=== PATIENT | male | born 1935 | race Caucasian/White ===

== ENCOUNTER 2016-11-19 16:28 | Emergency (ER) | payer MEDICARE, OTHER ==
[2016-11-19] MEDS ORDERED: NORMAL SALINE 1000 ML 1,000 ML IV PRN (16:52)
--- NOTE | 2016-11-19 16:52 | ER Document Report ---
ED General - General Stated Complaint: WEAKNESS Time seen by provider: 16:51 Mode of Arrival: Ambulatory Information source: Patient Notes: This is an 81-year-old man with a history of esophageal cancer, diabetes, GERD and hypothyroidism. The patient presents to the emergency room with nausea, vomiting, weakness and dizziness. Patient states his symptoms started earlier today. Patient has been under a lot of stress. He receives chemotherapy weekly (followed by Dr. Steward) and the patient's was just diagnosed with terminal cancer. He is very tearful in the emergency room. TRAVEL OUTSIDE OF THE [place] IN LAST 30 DAYS: No - HPI Onset: Just prior to arrival Onset/Duration: Sudden Quality of pain: No pain Severity: None Pain Level: Denies Associated symptoms: Nausea, Vomiting. denies: Chills, Fever Exacerbated by: Denies Relieved by: Denies Similar symptoms previously: No Recently seen / treated by doctor: No - Related Data Allergies/Adverse Reactions: No Known Allergies Allergy (Verified 02/21/16 12:18) Past Medical History - General Information source: Patient - Social History Smoking Status: Never Smoker Cigarette use (# per day): No Chew tobacco use (# tins/day): No Frequency of alcohol use: None Drug Abuse: None Lives with: Family Family History: Reviewed & Not Pertinent Patient has suicidal ideation: No Patient has homicidal ideation: No - Past Medical History Cardiac Medical History: Denies: Hx Coronary Artery Disease, Hx Heart Attack, Hx Hypertension Pulmonary Medical History: Reports: Hx Bronchitis Denies: Hx Asthma, Hx COPD, Hx Pneumonia Neurological Medical History: Denies: Hx Cerebrovascular Accident, Hx Seizures Endocrine Medical History: Reports: Hx Diabetes Mellitus Type 2 Musculoskeltal Medical History: Denies Hx Arthritis Past Surgical History: Reports: Hx Cholecystectomy - Immunizations Hx Diphtheria, Pertussis, Tetanus Vaccination: Yes Review of Systems - Review of Systems Constitutional: denies: Chills, Fever EENT: No symptoms reported Cardiovascular: No symptoms reported Respiratory: No symptoms reported Gastrointestinal: See HPI Genitourinary: No symptoms reported Male Genitourinary: No symptoms reported Musculoskeletal: No symptoms reported Skin: No symptoms reported Hematologic/Lymphatic: No symptoms reported Neurological/Psychological: See HPI Physical Exam - Vital signs Vitals: Temp Pulse Resp BP Pulse Ox 97.8 F 76 20 133/68 H 98 11/19/16 16:34 11/19/16 16:34 11/19/16 16:34 11/19/16 16:34 11/19/16 16:34 Notes: Physical exam: GENERAL: 81-year-old man, alert and oriented 3, appears weak and dehydrated HEAD: Atraumatic, normocephalic. EYES: Pupils equal round and reactive to light, extraocular movements intact, sclera anicteric, conjunctiva are normal. ENT: TMs normal, nares patent, oropharynx clear without exudates. Dry mucous membranes. NECK: Normal range of motion, supple without lymphadenopathy or JVD. LUNGS: Breath sounds clear to auscultation bilaterally and equal. No wheezes rales or rhonchi. HEART: Regular rate and rhythm without murmurs, rubs or gallops. ABDOMEN: Soft, nontender, normoactive bowel sounds. No guarding, no rebound. No masses appreciated. EXTREMITIES: Normal range of motion, no pitting or edema. No clubbing or cyanosis. NEUROLOGICAL: Cranial nerves II through XII grossly intact. Normal speech, normal gait. PSYCH: Tearful SKIN: Warm, Dry, normal turgor, no rashes or lesions noted. Course - Vital Signs Vital signs: Temp Pulse Resp BP Pulse Ox 97.8 F 76 20 133/68 H 98 11/19/16 16:34 11/19/16 16:34 11/19/16 16:34 11/19/16 16:34 11/19/16 16:34 - Laboratory Result Diagrams: 11/19/16 16:50 11/19/16 16:50 Laboratory results interpreted by me: 11/19/16 11/19/16 11/19/16 16:50 16:50 18:30 WBC 2.6 L RBC 3.21 L Hgb 11.4 L Hct 32.1 L MCV 100 H MCH 35.5 H RDW 17.3 H Plt Count 99 L Seg Neutrophils % 78.3 H Lymphocytes % 11.2 L Absolute Lymphocytes 0.3 L Glucose 194 H Total Protein 6.2 L Urine Glucose (UA) >=500 H Urine Ketones TRACE H - EKG Interpretation by Me Rate: Normal Rhythm: NSR - EKG shows normal sinus rhythm with a ventricular rate of 82, no acute ST-T wave changes. Discharge - Discharge Clinical Impression: dizziness, nausea, dehydration Condition: Stable Disposition: HOME, SELF-CARE Instructions: Dizziness ([facility]) Additional Instructions: Recommendations: Take the Zofran for nausea. Follow-up with Dr. Steward in the morning as planned. To the emergency room for any worsening symptoms of dizziness, nausea, feeling faint or like you going to pass out. Continue current medicines.
[2016-11-19 17:08] LABS: ABSOLUTE LYMPHOCYTES (AUTO) 0.3 10^3/uL (0.5-4.7); ABSOLUTE MONOCYTES (AUTO) 0.3 10^3/uL (0.1-1.4); ABSOLUTE NEUT (AUTO) 2.1 10^3/uL (1.7-8.2); BASOPHILS % (AUTO) 0.5 % (0-2); EOSINOPHILS % (AUTO) 0.5 % (0-6); HEMATOCRIT 32.1 % (37.9-51.0); HEMOGLOBIN 11.4 g/dL (13.5-17.0); HGB HCT DIFFERENCE 2.1; LYMPHOCYTES % (AUTO) 11.2 % (13-45); MEAN CORPUSCULAR HEMOGLOBIN 35.5 pg (27.0-33.4); MEAN CORPUSCULAR HGB CONC 35.4 g/dL (32.0-36.0); MEAN CORPUSCULAR VOLUME 100 fl (80-97); MONOCYTES % (AUTO) 9.5 % (3-13); RED BLOOD COUNT 3.21 10^6/uL (4.35-5.55); RED CELL DISTRIBUTION WIDTH 17.3 % (11.5-14.0); SEGMENTED NEUTROPHILS % (AUTO) 78.3 % (42-78); WHITE BLOOD COUNT 2.6 10^3/uL (4.0-10.5)
[2016-11-19 17:16] LABS: VENOUS BLOOD BASE EXCESS 1.9 mmol/L; VENOUS BLOOD HCO3 27.9 mmol/L (20-32); VENOUS BLOOD PCO2 49.9 mmHg (35-63); VENOUS BLOOD PH 7.37 (7.30-7.42)
[2016-11-19 17:19] LABS: ALANINE AMINOTRANSFERASE 32 U/L (21-72); ALBUMIN 3.7 g/dL (3.5-5.0); ALKALINE PHOSPHATASE 66 U/L (38-126); ANION GAP 8 (5-19); ASPARTATE AMINO TRANSFERASE 19 U/L (17-59); BILIRUBIN,TOTAL 0.5 mg/dL (0.2-1.3); BLOOD UREA NITROGEN 11 mg/dL (7-20); CALCIUM 8.4 mg/dL (8.4-10.2); CARBON DIOXIDE 27 mmol/L (22-30); CHLORIDE 103 mmol/L (98-107); CREATINE KINASE 94 U/L (55-170); CREATININE RESULT 0.69 mg/dL (0.52-1.25); GLUCOSE 194 mg/dL (75-110); LIPASE 162.4 U/L (23-300); POTASSIUM 4.2 mmol/L (3.6-5.0); SODIUM 138.4 mmol/L (137-145); TOTAL PROTEIN 6.2 g/dL (6.3-8.2)
[2016-11-19 17:27] LABS: CREATINE KINASE MB 1.58 ng/mL (<4.55)
[2016-11-19 17:32] LABS: TROPONIN I < 0.012 ng/mL
[2016-11-19 17:39] LABS: ANISOCYTOSIS 1+; OVALOCYTES 2+; POIKILOCYTOSIS 1+; POLYCHROMASIA SLIGHT; SCHISTOCYTES SLIGHT; TEAR DROP CELLS SLIGHT
[2016-11-19 19:32] LABS: APPEARANCE,URINE CLEAR; BILIRUBIN,URINE NEGATIVE (NEGATIVE); GLUCOSE, URINE >=500 mg/dL (NEGATIVE); KETONES,URINE TRACE mg/dL (NEGATIVE); LEUKOCYTE ESTERASE,URINE NEGATIVE (NEGATIVE); NITRITE,URINE NEGATIVE (NEGATIVE); PROTEIN,URINE NEGATIVE (NEGATIVE); UROBILINOGEN,URINE NEGATIVE mg/dL (<2.0)
[2016-11-19] MEDS ORDERED: ONDANSETRON ODT 4 MG TAB (6 TAB/DSPK) PO PRN (19:41)
--- NOTE | 2016-11-19 23:07 | EKG REPORT ---
SEVERITY:- BORDERLINE ECG - SINUS RHYTHM BORDERLINE LEFT AXIS DEVIATION BORDERLINE T ABNORMALITIES, DIFFUSE LEADS : Confirmed by: Indy Sanchez 19-Nov-2016 23:06:57
[2016-11-19 23:10] VITALS: BP 126/86
== END 2016-11-19 20:17 | disposition home or self-care (01) ==
LOC: ER 16:28
DX: R42 Dizziness and giddiness (principal); R11.0 Nausea; E86.0 Dehydration; R53.1 Weakness; E11.9 Type 2 diabetes mellitus without complications; C15.9 Malignant neoplasm of esophagus, unspecified; E03.9 Hypothyroidism, unspecified; Z90.49 Acquired absence of other specified parts of digestive tract
CPT/HCPCS: 93005; 99285; 96360; 36415; 82553; 82550; 83690; 85025; 80053; 81001; 84484; 82803; 93010; J7030; A9270

== ENCOUNTER → 2016-12-29 | Outpatient (CLI) | payer MEDICARE, OTHER | LOC: RAD 12:36 | PROVIDERS: ATTEND Specialist | DX: C15.5 Malignant neoplasm of lower third of esophagus (principal) | CPT/HCPCS: 71260; 74160 ==

== ENCOUNTER → 2017-03-24 | Outpatient (CLI) | payer MEDICARE, OTHER | LOC: RAD 08:41 | PROVIDERS: ATTEND Internal Medicine | DX: C15.5 Malignant neoplasm of lower third of esophagus (principal) | CPT/HCPCS: 71260; 74160 ==

== ENCOUNTER → 2017-06-18 | Outpatient (CLI) | payer MEDICARE, OTHER ==
--- NOTE | 2017-06-18 10:45 | RADIOLOGY REPORT (SQ) ---
EXAM DESCRIPTION: CT CHEST WITH; CT ABD/PELVIS WITH IV ORAL COMPLETED DATE/TIME: 06/18/2017 9:18 am REASON FOR STUDY: ESOPHAGEAL CA (C15.5) C15.5 MALIGNANT NEOPLASM OF LOWER THIRD OF ESOPHAGUS COMPARISON: Radiation therapy treatment planning chest CT 07/17/2015 PET-CT 04/25/2016, 08/15/2016 CT chest abdomen pelvis 12/29/2016, 03/24/2017 CONTRAST TYPE AND DOSE: contrast/concentration: Isovue 370.00 mg/ml; Total Contrast Delivered: 79.0 ml; Total Saline Delivered: 68.0 ml RENAL FUNCTION: Creatinine 0.6 TECHNIQUE: CT scan of the chest performed using helical scanning technique with dynamic intravenous contrast injection. Images reviewed with lung, soft tissue and bone windows. Reconstructed coronal a nd sagittal MPR images reviewed. All images stored on PACS. CT scan of the abdomen and pelvis performed with intravenous and with oral contrastusing helical scan philip technique with dynamic intravenous contrast injection. Images reviewed with lung, soft tissue a nd bone windows. Reconstructed coronal and sagittal MPR images reviewed. Delayed images for evaluat ion of the urinary system also acquired and evaluated. All images stored on PACS. All CT scanners at this facility use dose modulation, iterative reconstruction, and/or weight based d osing when appropriate to reduce radiation dose to as low as reasonably achievable (ALARA). [facility]: Dose Right [facility]: CareDose [facility]: Dose Right [facility]: Teradose 4D [facility]: [employer] RADIATION DOSE: Up-to-date CT equipment and radiation dose reduction techniques were employed. CTDIv ol: 7.6 - 10.7 mGy. DLP: 1143 mGy-cm. . LIMITATIONS: None. FINDINGS: CHEST: LUNGS AND PLEURA: No worrisome opacities, nodules, masses. No pneumothorax. No effusions. There is minimal scarring in the periphery of the right lower lobe laterally on image 34, unchanged from 2015. HILAR AND MEDIASTINAL STRUCTURES: No mediastinal adenopathy. There is post radiation change along th e inferior right hilum above went minimal lung parenchymal volume loss and bronchiectasis. There is diffuse esophageal circumferential wall thickening, from the ovi to GE junction, similar compared to previous exams. HEART AND VASCULAR STRUCTURES: No aneurysm or dissection. No central pulmonary emboli. No pericardi al effusion. Minimal coronary artery calcification HARDWARE: None. THYROID AND OTHER SOFT TISSUES: No masses. No adenopathy. 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 There is a stable inferior e ndplate fracture with vacuum phenomenon and minimal overall loss of height with diffuse bony sclerosi s at T8. This finding is similar compared to previous studies. OTHER: No other significant finding. ABDOMEN AND PELVIS: Just ventral to the GE junction below the hemidiaphragms, a 1.2 x 1 cm lymph node is present which is smaller than on previous exams (was 1.4 x 1.2 cm on 03/24/2017). LIVER: Normal size. No masses. No dilated ducts. SPLEEN: Normal size. No focal lesions. PANCREAS: No masses. No significant calcifications. No adjacent inflammation or peripancreatic fluid collections. Pancreatic duct not dilated. GALLBLADDER: Surgically absent ADRENAL GLANDS: No significant masses or asymmetry. RIGHT KIDNEY AND URETER: No solid masses. No significant calcification. No hydronephrosis or hydroure ter. LEFT KIDNEY AND URETER: No solid masses. 1 cm cyst left posterior mid pole kidney. No significant c alcification. No hydronephrosis or hydroureter. AORTA AND VESSELS: No abdominal aortic aneurysm. Very heavily calcified proximal left renal artery w orrisome for flow significant renal artery stenosis, best shown on coronal reconstruction images 36 a nd 37, and axial CT abdomen pelvis images 62-65. Other visceral arteries off the aorta are grossly u nremarkable. RETROPERITONEUM: Lymph node as above BOWEL AND PERITONEAL CAVITY: No masses or inflammatory changes. No free fluid or peritoneal masses. APPENDIX: Normal. No right lower quadrant inflammatory change ABDOMINAL WALL: Bilateral fat containing inguinal hernias are present. Old postsurgical changes from reversal of a feeding jejunostomy in the left upper quadrant. BONES: No significant or acute findings. PELVIS: No adenopathy or free fluid. No other significant finding. IMPRESSION: Lower third diffuse esophageal wall thickening, similar compared to previous studies Decrease in size of the lymph node immediately ventral to the GE junction as compared to 03/24/2017 Stable inferior endplate T8 compression deformity No CT evidence of metastatic disease to the abdomen or pelvis NORMAL CT OF THE ABDOMEN AND PELVIS WITH ORAL AND INTRAVENOUS CONTRAST. TECHNICAL DOCUMENTATION: JOB ID: [id number] Quality ID # [id number]: Final reports with documentation of one or more dose reduction techniques (e.g., Au tomated exposure control, adjustment of the mA and/or kV according to patient size, use of iterative reconstruction technique) 2010 [employer]- All Rights Reserved
== END ==
LOC: RAD 08:11
PROVIDERS: ATTEND Internal Medicine
DX: C15.5 Malignant neoplasm of lower third of esophagus (principal)
CPT/HCPCS: 71260; 74177

== ENCOUNTER 2017-09-09 07:33 | Outpatient (CLI) | payer MEDICARE, OTHER ==
[2017-09-09] MEDS ORDERED: NORMAL SALINE 1000 ML 1,000 ML IV PRN (07:47)
[2017-09-09 07:58] VITALS: BP 114/57
== END 2017-09-09 09:24 | disposition home or self-care (01) ==
LOC: II 07:33 → 5TH 07:36 → II 09:24
PROVIDERS: ATTEND Internal Medicine
PROC: 3E0437Z Introduction of Electrolytic and Water Balance Substance into Central Vein, Percutaneous Approach (ICD-10-PCS; principal; 2017-09-09)
DX: E86.0 Dehydration (principal); C15.5 Malignant neoplasm of lower third of esophagus
CPT/HCPCS: 96360; 96375

== ENCOUNTER 2017-09-11 09:01 | Day surgery (SDC) | payer MEDICARE, OTHER ==
[~2017-09-11 09:01] MED LIST: DIPHENHYDRAMINE HCL 50 MG/ML VIAL ONE; EPINEPHRINE INJ 1 MG/10 ML DISP.SYRIN ONE; FENTANYL CITRATE INJ/PF 100 MCG/2 ML AMPUL ONE; FLUMAZENIL INJ 0.5 MG/5 ML VIAL ONE; GLUCAGON,HUMAN RECOMB 1 MG INJ ONE; MIDAZOLAM 2 MG/2 ML INJ ONE; NALOXONE HCL INJ/PF 0.4 MG/1 ML SDV ONE; ONDANSETRON HCL INJ/PF 4 MG/2 ML SDV ONE
--- NOTE | 2017-09-11 10:24 | Operative Report ---
Operative Report DATE OF SURGERY: 09/11/17 Operative Report: The risks benefits and alternatives of the procedure explained to the patient in detail and informed consent is obtained.A GIF Olympus video scope was inserted into the patient's mouth and hypopharynx, the esophagus is identified intubated and insufflated, the scope was then advanced through the esophagus stomach and duodenum, retroflexion maneuver is done, the esophagus stomach and first and second portions of the duodenum examined PREOPERATIVE DIAGNOSIS: Dysphagia. Weight loss. History of previous esophageal lesion POSTOPERATIVE DIAGNOSIS: Recurrence of esophageal lesion starting at about 36 cm to the distal EG junction. There was a stricture which required dilation from 10 mm to 12 mm for advancement of the scope. Biopsies were obtained. Food material was pushed down into the stomach. OPERATION: EGD with dilation. EGD with biopsy SURGEON: GIANNA HARO ANESTHESIA: Moderate Sedation - 2 mg of Versed, 25 mcg of fentanyl. Conscious sedation monitoring time 30 minutes. TISSUE REMOVED OR ALTERED: As noted above. COMPLICATIONS: None. ESTIMATED BLOOD LOSS: None. INTRAOPERATIVE FINDINGS: As noted above. PROCEDURE: Patient tolerated procedure well. No immediate postprocedure complications are noted. Patient discharged in good condition. Discharge date 09/11/2017. Discharge diet: Regular. Discharge activity: Regular. 2-3 week follow-up to discuss findings. We will call patient once results of biopsies obtained. He likely will need distal esophagectomy, since then placement would straddle the distal EG junction and therefore cause slippage. He may need a surgically placed percutaneous gastrostomy tube.
[2017-09-11 11:42] VITALS: BP 117/59
== END 2017-09-11 11:20 | disposition home or self-care (01) ==
LOC: END 09:01
PROVIDERS: ATTEND Internal Medicine Gastroenterology
PROC: 0DB58ZX Excision of Esophagus, Via Natural or Artificial Opening Endoscopic, Diagnostic (ICD-10-PCS; principal; 2017-09-11 09:30)
DX: C15.9 Malignant neoplasm of esophagus, unspecified (principal); K22.2 Esophageal obstruction; R63.4 Abnormal weight loss; E11.9 Type 2 diabetes mellitus without complications; E03.9 Hypothyroidism, unspecified; Z68.23 Body mass index [BMI] 23.0-23.9, adult
CPT/HCPCS: 43249; 82962; 88305 ×2; C1726; J2250; J3010; 43239; J0171; J1200; J1610; J2310; J2405; J3490

== ENCOUNTER 2017-09-14 10:49 | Emergency (ER) | payer MEDICARE, OTHER ==
[2017-09-14 11:00] VITALS: BP 108/70
[2017-09-14] MEDS ORDERED: ONDANSETRON HCL INJ/PF 4 MG/2 ML SDV IV ONE (11:12)
[2017-09-14] MEDS ORDERED: NORMAL SALINE 1000 ML 1,000 ML IV ONE ×2 (11:29→16:43)
--- NOTE | 2017-09-14 11:33 | ER Document Report ---
ED General - General Chief Complaint: Difficulty Swallowing Stated Complaint: UNABLE TO SWALLOW FOOD Time Seen by Provider: 09/14/17 11:24 Notes: 82-year-old male with esophageal cancer presents with inability to swallow liquids and solids for 2 days, worsening, now associated with dehydration. He has been spitting up phone every time he tries anything. No fever chills or diarrhea. He was with Dr. Quiñonez 3 days ago for an endoscopy when he was dilated and biopsies were taken of recurrent mass and stricture at the distal esophagus. Since then he was initially better and is now back to where he was prior to the procedure. He lives alone and is friend is worried about them. TRAVEL OUTSIDE OF THE [place] IN LAST 30 DAYS: No - Related Data Allergies/Adverse Reactions: No Known Allergies Allergy (Verified 09/14/17 10:56) Past Medical History - Social History Smoking Status: Former Smoker Family History: Reviewed & Not Pertinent Patient has suicidal ideation: No Patient has homicidal ideation: No - Past Medical History Cardiac Medical History: Denies: Hx Coronary Artery Disease, Hx Heart Attack, Hx Hypertension Pulmonary Medical History: Reports: Hx Bronchitis Denies: Hx Asthma, Hx COPD, Hx Pneumonia Neurological Medical History: Denies: Hx Cerebrovascular Accident, Hx Seizures Endocrine Medical History: Reports: Hx Diabetes Mellitus Type 2 Renal/ Medical History: Denies: Hx Peritoneal Dialysis Musculoskeltal Medical History: Denies Hx Arthritis Past Surgical History: Reports: Hx Cholecystectomy - Immunizations Hx Diphtheria, Pertussis, Tetanus Vaccination: Yes Review of Systems - Review of Systems Notes: REVIEW OF SYSTEMS GEN: D weakness weight loss decreased oral intake ENT: Denies sore throat, nasal discharge, ear pain EYES: Denies blurry vision, eye pain, discharge CV: Denies chest pain, palpitations, edema RESP: Denies cough, shortness of breath, wheezing GI: D dysphasia MSK: Denies joint pain/swelling, edema, SKIN: Denies rash, skin lesions LYMPH: Denies swollen glands/lymph nodes NEURO: Denies headache, focal weakness or numbness, dizziness PSYCH: Denies depression, suicidal or homicidal ideation PHYSICAL EXAMINATION General: No acute distress, well-nourished Head: Atraumatic, normocephalic ENT: Mouth normal, oropharynx moist, no exudates or tonsillar enlargement Eyes: Conjunctiva normal, pupils equal, lids normal Neck: No JVD, supple, no guarding CVS: Normal rate, regular rhythm, no murmurs report left upper chest wall nontender. Resp: No resp distress, equal and normal breath sounds bilaterally GI: Nondistended, soft, no tenderness to palpation, no rebound or guarding Ext: No deformities, no edema, normal range of motion in upper and lower ext Back: No CVA or midline TTP Skin: No rash, warm Lymphatic: No lymphadeopathy noted Neuro: Awake, alert. Face symmetric. GCS 15. Physical Exam - Vital signs Vitals: Temp Pulse Resp BP Pulse Ox 97.3 F 99 18 108/70 100 09/14/17 10:57 09/14/17 10:57 09/14/17 10:57 09/14/17 10:57 09/14/17 10:57 Course - Re-evaluation Re-evalutation: 09/14/17 11:31 Dysphasia and dehydration in a patient with known esophageal mass. We will check electrolytes, hydrate, and likely admit for endoscopy. Attempted 09/14/17 14:12 Labs show a normal chemistry and BNP. Patient still cannot swallow. Transferred to [facility]. Accepted by Dr. Bell. - Vital Signs Vital signs: Temp Pulse Resp BP Pulse Ox 97.3 F 99 18 108/70 100 09/14/17 10:57 09/14/17 10:57 09/14/17 10:57 09/14/17 10:57 09/14/17 10:57 - Laboratory Result Diagrams: 09/14/17 12:30 09/14/17 12:30 Laboratory results interpreted by me: 09/14/17 09/14/17 12:30 12:30 RBC 4.27 L RDW 14.8 H Plt Count 117 L Seg Neutrophils % 80.9 H Lymphocytes % 6.4 L Absolute Lymphocytes 0.4 L Carbon Dioxide 20 L Glucose 141 H Discharge - Discharge Clinical Impression: Dehydration Dysphagia Qualifiers: Dysphagia type: other dysphagia Qualified Code(s): R13.19 - Other dysphagia Condition: Good Disposition: [facility]
--- NOTE | 2017-09-14 12:01 | RADIOLOGY REPORT (SQ) ---
EXAM DESCRIPTION: CHEST PA/LAT COMPLETED DATE/TIME: 09/14/2017 11:53 am REASON FOR STUDY: dysphagia COMPARISON: None. EXAM PARAMETERS: NUMBER OF VIEWS: two views TECHNIQUE: Digital Frontal and Lateral radiographic views of the chest acquired. RADIATION DOSE: NA LIMITATIONS: none FINDINGS: LUNGS AND PLEURA: No opacities, masses or pneumothorax. No pleural effusion. MEDIASTINUM AND HILAR STRUCTURES: No masses or contour abnormalities. HEART AND VASCULAR STRUCTURES: Heart normal size. No evidence for failure. BONES: No acute findings. HARDWARE: An injection port is present on the left. OTHER: No other significant finding. IMPRESSION: NO SIGNIFICANT RADIOGRAPHIC FINDING IN THE CHEST. TECHNICAL DOCUMENTATION: JOB ID: [id number] [employer]- All Rights Reserved
[2017-09-14 12:51] LABS: ABSOLUTE LYMPHOCYTES (AUTO) 0.4 10^3/uL (0.5-4.7); ABSOLUTE MONOCYTES (AUTO) 0.8 10^3/uL (0.1-1.4); ABSOLUTE NEUT (AUTO) 5.1 10^3/uL (1.7-8.2); BASOPHILS % (AUTO) 0.1 % (0-2); EOSINOPHILS % (AUTO) 0.1 % (0-6); HEMOGLOBIN 13.5 g/dL (13.5-17.0); HGB HCT DIFFERENCE 0.5; LYMPHOCYTES % (AUTO) 6.4 % (13-45); MEAN CORPUSCULAR HEMOGLOBIN 31.7 pg (27.0-33.4); MEAN CORPUSCULAR HGB CONC 33.9 g/dL (32.0-36.0); MEAN CORPUSCULAR VOLUME 94 fl (80-97); MONOCYTES % (AUTO) 12.5 % (3-13); RED BLOOD COUNT 4.27 10^6/uL (4.35-5.55); RED CELL DISTRIBUTION WIDTH 14.8 % (11.5-14.0); SEGMENTED NEUTROPHILS % (AUTO) 80.9 % (42-78); WHITE BLOOD COUNT 6.3 10^3/uL (4.0-10.5)
[2017-09-14 13:09] LABS: BLOOD UREA NITROGEN 18 mg/dL (7-20); CALCIUM 9.3 mg/dL (8.4-10.2); CREATININE RESULT 0.62 mg/dL (0.52-1.25); GLUCOSE 141 mg/dL (75-110)
[2017-09-14 13:20] LABS: ANION GAP 19 (5-19); CARBON DIOXIDE 20 mmol/L (22-30); CHLORIDE 103 mmol/L (98-107); POTASSIUM 4.1 mmol/L (3.6-5.0); SODIUM 142.2 mmol/L (137-145)
--- NOTE | 2017-09-14 16:54 | ER Document Report ---
Doctor's Note Notes: 09/14/17 16:53 Evaluated patient for transfer. Patient is stable. Says he has some balance problems and difficulty standing at times. Has an active port. I have ordered IV fluids for the patient. Rose Lugo MD
== END 2017-09-14 17:03 | disposition short-term general hospital (02) ==
LOC: ER 10:49
DX: C15.9 Malignant neoplasm of esophagus, unspecified (principal); E86.0 Dehydration; R13.10 Dysphagia, unspecified; E11.9 Type 2 diabetes mellitus without complications; Z98.890 Other specified postprocedural states; Z87.891 Personal history of nicotine dependence
CPT/HCPCS: 36591; 99285; 96360; 36415; 85025; 80048; 71020; J2405; J7030